=== PATIENT | female | born 1995 | race Two or more races ===

== ENCOUNTER 2019-06-26 16:26 | Emergency (ER) | payer SELFPAY ==
[~2019-06-26] VITALS: Ht 162.6 cm; Wt 56.8 kg
[2019-06-26 16:36] VITALS: Ht 162.6 cm; Wt 56.8 kg
[2019-06-26 17:12] LABS: microscopic required? YES; urine erythrocyte 3+ (NEGATIVE)
[2019-06-26 18:12] VITALS: BP 123/69
== END 2019-06-26 18:12 | disposition home or self-care (01) ==
LOC: ED 16:26
PROVIDERS: Emergency Medicine
DX: J02.0 Streptococcal pharyngitis (principal)
CPT/HCPCS: 87804; J0561; J1100